=== PATIENT | female | born 2000 | race Hispanic/Latino ===

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

== ENCOUNTER 2021-03-01 11:55 | Emergency (ER) | payer BC, SELFPAY ==
[2021-03-01 12:09] VITALS: BP 102/69; PULSE 78; RESP 16; TEMP 36.6; O2SAT 100
--- NOTE | 2021-03-01 12:25 | ED.SKABFB ---
HPI - Skin/Abscess/Foreign Bdy General Chief complaint: Skin/Abscess/Foreign Body Stated complaint: Rash on Face Time Seen by Provider: 03/01/21 12:25 Source: patient Mode of arrival: ambulatory Limitations: no limitations History of Present Illness HPI narrative: Naida Sanchez is a 21 yo female who comes to [facility] with a rash on her face and her neck that started 2 days ago. She states that she used a new skin scrub a week ago and initially had some blotches and lesions around her upper chest and neck but then yesterday her face started to become very red and swollen. She woke up with swelling around her eyelids. She has no idea what the exposure is that is causing the allergy whether it scrubbed she also has been wearing a necklace around her neck that she never takes off which may lead to a nickel allergy, she also used [facility] sunscreen on her face recently Related Data Home Medications Medication Instructions Recorded Confirmed norgestimate-ethinyl estradiol tablet 03/01/21 [Tri-Linyah] Allergies Allergy/AdvReac Type Severity Reaction Status Date / Time No Known Allergies Allergy Unverified 04/24/16 09:52 Review of Systems Review of Systems: Narrative: CONSTITUTIONAL: Denies fever, chills, sweats. EYES: Denies visual changes, redness, discharge. ENT: Denies rhinorrhea, congestion, sore throat, otalgia. CARDIOVASCULAR: Denies chest pain, palpitations, edema. RESPIRATORY: Denies dyspnea, wheezing, cough GASTROINTESTINAL: Denies abdominal pain, nausea, vomiting, diarrhea. GENITOURINARY: Denies dysuria, hematuria, abnormal discharge SKIN: Rash on face and neck with facial swelling NEUROLOGIC: Denies numbness, or focal weakness. PSYCHIATRIC: Denies anxiety or depression. [facility] Past Medical History Medical History No acute medical problems Family History Family History Other No acute medical problems Social History Social History (Updated 03/01/21 @ 12:37 by Ivon Corrigan CNP) Smoking status: Never smoker Alcohol intake: current Comments At time of signature, I agree with nursing past medical, surgical, social and family history. There is no relevant family history pertinent to the presenting complaint. Exam Narrative: Exam Narrative: GENERAL: This is a well-nourished, well-developed patient, in mild distress. HEAD: normocephalic, atraumatic. EYES: PERRL. Sclera clear/white. Vision is grossly intact. EARS: External ears normal, . Hearing grossly intact. NOSE: External nose normal without nasal discharge, nares without redness, no rhinorrhea. THROAT: Mucous membranes moist, NECK: Neck supple, non-tender CARDIOVASCULAR: Regular rate and rhythm without murmurs, gallops, or rubs. RESPIRATORY: Clear to auscultation. Breath sounds equal bilaterally. No wheezes, rales, or rhonchi. GASTROINTESTINAL: Abdomen soft, non-tender, SKIN: warm, intact with edema around both eyes with redness and erythema of her face in general, no warmth, small papular lesions around the area of her necklace on her neck NEURO: awake, alert, and oriented to person, place and time. There were no obvious focal neurologic abnormalities. Steady gait EXTREMITIES: Normal range of motion. BACK: Nontender without deformity Course Course Emergency Course: Came to [facility] with complaints of rash to face and neck that has really increased the last 2 days Given prednisone 60 mg here Medrol Dosepak plus Pepcid plus Benadryl on discharge Vital Signs Vital signs: Vital Signs Temperature 97.9 F 03/01/21 12:09 Pulse Rate 78 03/01/21 12:09 Respiratory Rate 16 03/01/21 12:09 Blood Pressure 102/69 03/01/21 12:09 Pulse Oximetry 100 03/01/21 12:09 Temperature 97.9 F 03/01/21 12:09 Pulse Rate 78 03/01/21 12:09 Respiratory Rate 16 03/01/21 12:09 Blood Pressure 102/69 03/01/21 12:0
[2021-03-01] MEDS: predniSONE 20 MG TABLET 60 MG PO (12:51)
== END 2021-03-01 12:54 | disposition home or self-care (01) ==
PROVIDERS: Emergency Provider Nurse Practitioner; PCP Family Medicine
DX: R21 Rash and other nonspecific skin eruption (principal); T78.49XA Other allergy, initial encounter
CPT/HCPCS: 99213; G0463; J7512

== ENCOUNTER 2021-08-06 14:14 | Emergency (ER) | payer BC, SELFPAY ==
[2021-08-06 14:22] VITALS: BP 122/60; PULSE 127; RESP 20; TEMP 36.8; O2SAT 100
--- NOTE | 2021-08-06 14:28 | ECG_ITS ---
Measurements Intervals [place] Rate: 126 P: -17 [place]: 146 QRS: -41 QRSD: 78 T: 20 QT: 306 QTc: 443 Interpretive Statements SINUS TACHYCARDIA LEFT AXIS DEVIATION VOLTAGE CRITERIA FOR LVH MINIMAL Q WAVES- HIGH LATERAL LEADS BASELINE WANDER- III, AVR, AVL,A VF, V1-V6 ABNORMAL ECG Electronically Signed On 08-06-2021 14:54:40 HEMATOLOGIST ONCOLOGIST by Sage Varela D.O.
[2021-08-06 15:49] VITALS: BP 103/52; PULSE 106; TEMP 36.6; O2SAT 100
[2021-08-06 18:56] VITALS: BP 99/54; PULSE 108; RESP 16; TEMP 37; O2SAT 100
[2021-08-06] MEDS: ALPRAZolam (*CRX) 0.5 MG TABLET PO (19:28)
--- NOTE | 2021-08-06 20:13 | ED.GENADULT ---
HPI - General Adult General Chief complaint: Anxiety Stated complaint: Panic attack x24 hours. Time Seen by Provider: 08/06/21 18:56 History of Present Illness HPI narrative: Patient is a 21-year-old female who presents ER with anxiety. She reports yesterday began having panic attacks at work. She feels like she has to perform certain motions with her arms to calm herself down. She feels like her heart is racing and one time she has not felt like she was actually . She denies any new stressors in her life but does report she has been smoking some marijuana from the dispensary. This is not caused her issues in the past. No thoughts of self-harm or harm towards others. She reports that initially when her anxiety began she was seen that all the customer she had seen during the day who were not wearing masks and that this may have exposed her to Covid. Related Data Home Medications Medication Instructions Recorded Confirmed norgestimate-ethinyl estradiol tablet 03/01/21 [Tri-Linyah] Allergies Allergy/AdvReac Type Severity Reaction Status Date / Time No Known Allergies Allergy Verified 08/06/21 19:32 Review of Systems Review of Systems: All systems reviewed & are unremarkable except as noted in HPI and below Constitutional: Constitutional: Denies chills, Denies fever(s) and Denies weakness Cardiovascular: Cardiovascular: Denies chest pain, Reports rapid heart rate and Denies radiating jaw, neck or arm pain Respiratory: Respiratory: Denies cough and Denies dyspnea Gastrointestinal: Gastrointestinal: Denies abdominal pain, Denies nausea and Denies vomiting Psychiatric: Psychiatric: Reports anxiety, Denies homicidal ideation and Denies suicidal ideation [facility] Past Medical History Medical History (Updated 08/06/21 @ 20:25 by Conner Resendez MD) No acute medical problems Surgical History Surgical History (Updated 08/06/21 @ 20:19 by Conner Resendez MD) No history of previous surgery Family History Family History Other No acute medical problems Social History Social History (Updated 03/01/21 @ 12:37 by Ivon Corrigan CNP) Smoking status: Never smoker Alcohol intake: current Exam Narrative: GENERAL: Well-appearing, well-nourished, and in no acute distress. HEAD: Normocephalic, atraumatic. ENT: Mucous membranes moist. CHEST: Clear to auscultation. No respiratory distress. HEART: Regular rate and rhythm. Normal peripheral pulses. ABDOMEN: Soft, nontender, nondistended. EXTREMITIES: Normal range of motion. No edema. SKIN: Warm, dry, no rash. NEURO: Alert and oriented x3. PSYCH: Normal mood and affect. Course Course Emergency Course: Patient resting comfortably. Feels much better after Xanax. She is not tachycardic. Discharge home. Recommend follow-up with PCP for mood stabilizer. Vital Signs Vital signs: Vital Signs Temperature 98.2 F 08/06/21 14:22 Pulse Rate 127 H 08/06/21 14:22 Respiratory Rate 20 08/06/21 14:22 Blood Pressure 122/60 08/06/21 14:22 Pulse Oximetry 100 08/06/21 14:22 Temperature 98.6 F 08/06/21 18:56 Pulse Rate 108 H 08/06/21 18:56 Respiratory Rate 16 08/06/21 18:56 Blood Pressure 99/54 L 08/06/21 18:56 Pulse Oximetry 100 08/06/21 18:56 Medical Decision Making Vital Signs Vital Signs: Vital Signs Temperature 98.2 F 08/06/21 14:22 Pulse Rate 127 H 08/06/21 14:22 Respiratory Rate 20 08/06/21 14:22 Blood Pressure 122/60 08/06/21 14:22 Pulse Oximetry 100 08/06/21 14:22 Temperature 98.6 F 08/06/21 18:56 Pulse Rate 108 H 08/06/21 18:56 Respiratory Rate 16 08/06/21 18:56 Blood Pressure 99/54 L 08/06/21 18:56 Pulse Oximetry 100 08/06/21 18:56 ECG Data EKG #1: ECG completion date: 08/06/21 ECG completion time: 14:32 EKG Interpretation: tachycardia (126), sinus rhythm, no ectopy, no ST changes, normal Q
[2021-08-06 20:40] VITALS: BP 118/65; PULSE 96; RESP 19; O2SAT 100
== END 2021-08-06 20:45 | disposition home or self-care (01) ==
PROVIDERS: Emergency Provider Emergency Medicine; PCP Family Medicine
DX: F41.9 Anxiety disorder, unspecified (principal); R00.0 Tachycardia, unspecified; R94.31 Abnormal electrocardiogram [ECG] [EKG]
CPT/HCPCS: 93005; 99283; A9270

== ENCOUNTER 2024-07-04 04:12 | Emergency (ER) | payer OTHER, SELFPAY ==
--- NOTE | ~2024-07-04 | CT_ITS ---
CT of the Abdomen and Pelvis: Indication: Abdominal pain Technique: 2.5 mm axial scans were obtained through the abdomen and pelvis following intravenous adm inistration of 100 cc of Omnipaque 350. Dose reduction technique was used on this scan by utilizing a utomated exposure control and iterative reconstruction technique. The dose-length product (DLP) was 3 05.79 mGy-cm. Findings: Scans through the lung bases are unremarkable. The liver, spleen, pancreas, gallbladder, adrenals and left kidney are within normal limits. There is a 5 mm rounded mid right ureteral stone (axial image 100), with mild right hydroureteronephrosis to this level. No evidence of aortic aneurysm. No lymphadenopathy. No bowel obstruction or bowel wall thickening. There is no evidence to suggest acute appendicitis. Images through the pelvis were performed. Urinary bladder unremarkable. No pelvic mass evident. No as cites. Impression: 5 mm mid right ureteral stone, with mild right hydroureteronephrosis to this level. Reviewed, dictated and finalized at [facility]. POSTER Impression: 5 mm mid right ureteral stone, with mild right hydroureteronephrosis to this le nicole.
[2024-07-04 04:15] VITALS: BP 119/50; PULSE 76; RESP 20; TEMP 36.2; O2SAT 99
[2024-07-04] MEDS: MORPHINE SULFATE (*CRX) 4 MG/ML INJ IV PUSH (05:02)
[2024-07-04] MEDS: SODIUM CHLORIDE 0.9% IV 1,000 ML 999 ML IV CONT (05:03)
[2024-07-04] MEDS: ONDANSETRON INJ 4 MG/2 ML VIAL IV PUSH (05:03)
--- NOTE | 2024-07-04 05:09 | ED.GENADULT ---
HPI - General Adult General Chief complaint: Abdominal Pain Stated complaint: Right sided abd pain Time Seen by Provider: 07/04/24 04:43 History of Present Illness HPI narrative: Patient 24-year-old female who presents emergency department with chief complaint of abdominal pain. The patient reports this evening she woke up a periumbilical pain reports the pain is localized to the right lower quadrant. The patient reports she has had some nausea reports that she has had no diarrhea denies dysuria. Related Data Home Medications Medication Instructions Recorded Confirmed sertraline 25 mg tablet 25 mg PO 06/20/24 06/21/24 Allergies Allergy/AdvReac Type Severity Reaction Status Date / Time No Known Allergies Allergy Verified 07/04/24 04:17 Review of Systems Review of Systems: A 10 system review of systems was completed on the patient and is negative except for what is stated in the HPI. Nursing and ancillary documentation was reviewed. [facility] Past Medical History Medical History Initiation of Depo Provera No acute medical problems Surgical History Surgical History H/O eye surgery Family History Family History Mother Diabetes mellitus Father Liver cancer Heart disease Hypertension Cerebrovascular accident Grandparent Skin cancer Social History Social History Smoking status: Current every day smoker Tobacco type: e-cigarettes/vaping Alcohol intake: current Substance use: never Substance use type: does not use Do You Feel Safe in your Home?: Yes Lack of Transportation: No Lack of Food: Never True Current Housing: I Have Housing Concerned About Future Housing: No Difficulty Paying Gas/Electric Bills: No Difficulty Paying for Meds: No Currently Unemployed: No Education: High School Diploma/GED Difficulty w/ Childcare or Family Care: No Living arrangements: with family Occupation/Education: occupation Gender identity (if verbalized by the patient): Female Sexual Orientation (if Verbalized by the Patient): Straight or Heterosexual Exam Narrative: GENERAL: Well-appearing, well-nourished, and in no acute distress. HEAD: Normocephalic, atraumatic. EYES: PERRLA and EOMI. ENT: Nares clear, no rhinorrhea or epistaxis. Mucous membranes moist. NECK: Supple. CHEST: Clear to auscultation. No respiratory distress. HEART: Regular rate and rhythm. No murmur heard. Normal peripheral pulses. ABDOMEN: Soft, tenderness to palpation periumbilical and right lower quadrant, nondistended, normal active bowel sounds. EXTREMITIES: Normal range of motion. No edema. SKIN: Warm, dry, no rash. NEURO: No focal deficits. Alert and oriented x3. PSYCH: Normal mood and affect. Course Vital Signs Vital signs: Vital Signs Temperature 36.2 C L 07/04/24 04:15 Pulse Rate 76 07/04/24 04:15 Respiratory Rate 20 07/04/24 04:15 Blood Pressure 119/50 L 07/04/24 04:15 Pulse Oximetry 99 07/04/24 04:15 Oxygen Delivery Room Air 07/04/24 04:15 Temperature 36.2 C L 07/04/24 04:15 Pulse Rate 76 07/04/24 04:15 Respiratory Rate 20 07/04/24 04:15 Blood Pressure 119/50 L 07/04/24 04:15 Pulse Oximetry 99 07/04/24 04:15 Oxygen Delivery Room Air 07/04/24 04:15 Medical Decision Making MDM Narrative Medical decision making narrative: Differential diagnosis includes ureterolithiasis, appendicitis, diverticulitis, colitis The patient's pain was controlled in the emergency department Laboratory studies showed a white count of 7.8 electrolytes showed a creatinine of 0.7 liver enzymes were normal lipase was normal urinalysis showed greater than 100 red blood cells and 21-50 white blood cells 1+ bacteria 1+ leukocyte graham Vital Signs Vital Signs: Vital Signs Temperature 36.2 C L 07/04/24 04:15 Pulse Rate 76 07/04/24 04:15 Respiratory Rate 20 07/04/24 04:15 Blood Pressure 119/50 L 07/04/24 04:15 Pulse Oximetry 99 07/04/24 04:15 Oxygen Delivery Room Air 07/04/24 04:15 Temperature 36.2 C L 07/04/24 04:15 Pulse Rate 76 07/04/24 04:15 Respiratory Rate 20 07/04/24 04:15 Blood Pressure 119/50 L 07/04/24 04:15 Pulse Oximetry 99 07/04/24 04:15 Oxygen Delivery Room Air 07/04/24 04:15 Lab Data 07/04/24 05:02 07/04/24 05:02 Labs: Lab Results 07/04/24 Range/Units 05:02 WBC 7.8 (4.5-10.0) K/mm3 RBC 4.31 (4.2-5.4) M/mm3 Hgb 13.3 (12.0-15.0) g/dL Hct 40.3 (37.0-47.0) % MCV 93.5 (80-100) fl MCH 30.9 (26-34) pg MCHC 33.0 (32-36) g/dl RDW 12.9 (11.5-14.5) % Plt Count 329 (150-375) k/mm3 MPV 9.9 (7.4-10.4) fl Immature Gran % (Auto) 0.3 (0-0.5) % Neut % (Auto) 42.1 L (45.5-73.1) % Lymph % (Auto) 46.9 H (18.3-44.2) % [place] % (Auto) 6.6 (2.6-8.5) % Eos % (Auto) 3.6 (0-4.4) % Baso % (Auto) 0.5 (0.2-1.2) % Lymph # (Auto) 3.67 H (0.9-3.2) K/mm3 [place] # (Auto) 0.5 (0.1-0.6) K/mm3 Eos # (Auto) 0.3 (0-0.3) K/mm3 Baso # (Auto) 0.0 (0.0-0.1) K/mm3 Abs Immat Gran (auto) 0.02 (0.00-0.031) K/mm3 Absolute Neuts (auto) 3.3 (1.3-6.7) K/mm3 Absolute Nucleated RBC 0.000 (0.0-0.012) K/mm3 Nucleated RBC % 0.0 (0.0-0.2) % Sodium 140 (137-145) mmol/L Potassium 4.1 (3.4-5.0) mmol/L Chloride 111 H (98-107) mmol/L Carbon Dioxide 20 L (22-30) mmol/L Anion Gap 9 (4-12) mmol/L BUN 14 (7-17) mg/dL Creatinine 0.70 (0.7-1.0) mg/dL Estim Creat Clear Calc 77 ml/min Estimated GFR > 60 (59 - ) Glucose 116 H (65-110) mg/dL Calcium 9.1 (8.4-10.2) mg/dL Total Bilirubin 0.3 (0.2-1.3) mg/dL AST 25 (14-36) U/L ALT 16 (6-35) U/L Alkaline Phosphatase 95 (38-126) U/L Total Protein 8.0 (6.3-8.2) g/dL Albumin 4.2 (3.5-5.1) g/dL Lipase 69 (23-300) U/L Urine Color Dark yellow (Yellow) Urine Appearance Cloudy H (Clear) Urine pH 5.5 (5.0-9.0) Ur Specific [place] 1.023 (1.001-1.035) Urine Protein 1+ H (Negative) mg/dL Urine Glucose (UA) Negative (Negative) mg/dL Urine Ketones Negative (Negative) mg/dL Ur Blood (Man) 3+ H (Negative) Urine Nitrate Negative (Negative) Urine Bilirubin Negative (Negative) Urine Urobilinogen 1.0 (<2.0) mg/dL Leukocyte Esterase Rfl 1+ H (Negative) JANAY/UL Urine RBC >100 H (0-2) /hpf Urine WBC 21-50 H (0-3) /hpf Ur Squamous Epith Cells Moderate (Few) /hpf Urine Bacteria 1+ H /hpf Urine Casts 0-2 Discharge Plan Discharge Clinical Impression: Ureterolithiasis Patient Disposition: Home, Self-Care Condition: Stable Instructions: Antibiotic Form, Kidney Stones (ED), How to Strain Your Urine (ED), Flank Pain (ED) Prescriptions: New tamsulosin [Flomax] 0.4 mg capsule 0.4 mg PO DAILY Qty: 10 0RF ondansetron 4 mg tablet,disintegrating 4 mg PO Q8H PRN (Reason: nausea and vomiting) Qty: 10 0RF hydrocodone-acetaminophen 5-325 mg tablet 1 tablet PO Q6H PRN (Reason: pain) 3 Days Qty: 12 0RF No Action sertraline 25 mg tablet 25 mg PO medroxyprogesterone [Depo-Provera] 150 mg/mL syringe 150 mg IM [id number] Qty: 1 0RF Follow-up/Referrals: Carlos Soto MD [Physician] - [facility],Maryam Cazares MD [Primary Care Provider] - Time of Disposition: 06:31
[2024-07-04 05:17] LABS: Basophils Percent Auto 0.5 % (0.2-1.2); Eosinophils Absolute Auto 0.3 K/mm3 (0-0.3); Eosinophils Percent Auto 3.6 % (0-4.4); Hematocrit 40.3 % (37.0-47.0); Hemoglobin 13.3 g/dL (12.0-15.0); Immature Granulocyte Absolute 0.02 K/mm3 (0.00-0.031); Immature Granulocyte Percent A 0.3 % (0-0.5); Lymphocytes Absolute Auto 3.67 K/mm3 (0.9-3.2); Lymphocytes Percent Auto 46.9 % (18.3-44.2); Mean Corpuscular Hemoglobin 30.9 pg (26-34); Mean Corpuscular Volume 93.5 fl (80-100); Mean Platelet Volume 9.9 fl (7.4-10.4); Monocytes Absolute Auto 0.5 K/mm3 (0.1-0.6); Monocytes Percent Auto 6.6 % (2.6-8.5); Neutrophils Absolute Auto 3.3 K/mm3 (1.3-6.7); Neutrophils Percent Auto 42.1 % (45.5-73.1); Platelet Count Result 329 k/mm3 (150-375); Red Blood Count 4.31 M/mm3 (4.2-5.4); Red Cell Distribution Width 12.9 % (11.5-14.5); White Blood Count 7.8 K/mm3 (4.5-10.0)
[2024-07-04 05:19] LABS: Add Urine Microscopic? YES; Appearance Urine Cloudy (Clear); Bacteria Urine 1+ /hpf; Bilirubin Urine Negative (Negative); Blood Urine 3+ (Negative); Color Urine Dark Yellow (Yellow); Glucose Urine UA Negative (Negative); Ketones Urine Negative (Negative); Leukocyte Esterase Ur 1+ LEU/UL (Negative); Nitrate Urine Negative (Negative); Non Pathogenic Casts 0-2; Protein Urine 1+ mg/dL (Negative); RBC Urine >100 /hpf (0-2); Specific Grav Ur 1.023 (1.001-1.035); Squamous Epithelial Cell Urine Moderate /hpf (Few); WBC Urine 21-50 /hpf (0-3); pH Urine 5.5 (5.0-9.0)
[2024-07-04 05:33] LABS: Alanine Aminotransferase 16 U/L (6-35); Albumin Level 4.2 g/dL (3.5-5.1); Alkaline Phosphatase 95 U/L (38-126); Anion Gap 9 mmol/L (4-12); Aspartate Amino Transferase 25 U/L (14-36); Bilirubin,Total 0.3 mg/dL (0.2-1.3); Blood Urea Nitrogen 14 mg/dL (7-17); Calcium 9.1 mg/dL (8.4-10.2); Carbon Dioxide 20 mmol/L (22-30); Chloride 111 mmol/L (98-107); Estimated CRCL calculation 77 ml/min; Estimated Glomerular Filt Rate > 60; Glucose 116 mg/dL (65-110); Lipase 69 U/L (23-300); Potassium 4.1 mmol/L (3.4-5.0); Sodium 140 mmol/L (137-145)
[2024-07-04] MEDS: TAMSULOSIN HCL 0.4 MG CAPSULE PO (06:36)
[2024-07-04 10:06] LABS: BEDSIDEPREGUCG Negative (Negative)
== END 2024-07-04 06:40 | disposition home or self-care (01) ==
PROVIDERS: Emergency Provider Emergency Medicine; PCP Family Medicine
DX: N13.2 Hydronephrosis with renal and ureteral calculous obstruction (principal); F17.290 Nicotine dependence, other tobacco product, uncomplicated
CPT/HCPCS: 36415; 74177; 80053; 81001; 81025; 83690; 85025; 87086; 87186; 96361; 96374; 96375; 99284; A9270; J2270; J2405; J7030; Q9967